=== PATIENT | male | born 1980 | race Caucasian/White ===

== ENCOUNTER 2016-12-14 16:52 | Emergency (ER) | payer SELFPAY ==
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
[2016-12-14] MEDS ORDERED: SODIUM CHLORIDE 0.9% 1,000 ML IV ONE (17:06)
[2016-12-14] MEDS ORDERED: LORazepam 2 MG/ML SYRINGE IVP STA (17:06)
[2016-12-14] MEDS ORDERED: LORazepam 2 MG/ML SYRINGE ONE (17:22)
[2016-12-14 17:38] LABS: BASOPHILS % (AUTO) 0.4 %; EOSINOPHILS % (AUTO) 0.3 %; HCT - HEMATOCRIT 42.5 % (42.0-52.0); HGB - HEMOGLOBIN 14.2 g/dL (14.0-18.0); LYMPHOCYTES # (AUTO) 2.1 10^3/uL (1.5-3.5); LYMPHOCYTES % (AUTO) 18.6 %; MEAN CORPUSCULAR HEMOGLOBIN 29.6 pg (27.0-31.0); MEAN CORPUSCULAR HGB CONC 33.5 g/dL (32.0-36.0); MEAN CORPUSCULAR VOLUME 88.4 fL (80.0-94.0); MEAN PLATELET VOLUME 8.6 fL (7.4-11.4); MONOCYTES # (AUTO) 0.7 10^3/uL (0.0-1.0); MONOCYTES % (AUTO) 6.5 %; NEUTROPHILS # (AUTO) 8.2 10^3/uL (1.5-6.6); NEUTROPHILS % (AUTO) 74.2 %; RED BLOOD COUNT 4.81 10^6/uL (4.70-6.10); RED CELL DISTRIBUTION WIDTH 13.6 % (12.0-15.0); UNCORRECTED WHITE BLOOD COUNT 11.1 x10^3/uL; WHITE BLOOD COUNT 11.1 x10^3/uL (4.8-10.8)
[2016-12-14 17:42] LABS: BILIRUBIN,URINE NEGATIVE (NEGATIVE)
[2016-12-14 17:43] LABS: UA CHARGE (STRIP ONLY) YES; UR CULTURE IF IND NOT INDICATED
[2016-12-14 17:54] LABS: ALBUMIN/GLOBULIN RATIO 1.9 (1.0-2.2); BILIRUBIN,TOTAL 1.5 mg/dL (0.2-1.0); CALCIUM 9.4 mg/dL (8.5-10.3); CREATININE 0.8 mg/dL (0.6-1.2); POTASSIUM 3.8 mmol/L (3.5-5.0); TOTAL PROTEIN 7.5 g/dL (6.7-8.2)
[2016-12-14 18:40] VITALS: BP 122/75
== END 2016-12-14 18:38 | disposition home or self-care (01) ==
LOC: EDUNIT# → ED 16:52
DX: F15.10 Other stimulant abuse, uncomplicated (principal)
CPT/HCPCS: 36415; 80053; 80306; 81003; 82550; 83690; 85025; 96374; 99283; 99284; J2060; 81001; 87086

== ENCOUNTER 2018-08-30 10:55 | Emergency (ER) | payer MEDICAID ==
[2018-08-30] MEDS ORDERED: IBUPROFEN 800 MG TABLET PO STA (11:51)
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
[2018-08-30] MEDS ORDERED: BACITRACIN ZINC OINT 28.4 GM TUBE TOP STA (15:51)
[2018-08-30 16:48] VITALS: BP 140/78
== END 2018-08-30 17:16 | disposition home or self-care (01) ==
LOC: ED 10:55
DX: T23.202A Burn of second degree of left hand, unspecified site, initial encounter (principal); T23.201A Burn of second degree of right hand, unspecified site, initial encounter; T20.26XA Burn of second degree of forehead and cheek, initial encounter; T31.0 Burns involving less than 10% of body surface; X02.8XXA Other exposure to controlled fire in building or structure, initial encounter; Y92.009 Unspecified place in unspecified non-institutional (private) residence as the place of occurrence of the external cause; F17.200 Nicotine dependence, unspecified, uncomplicated
CPT/HCPCS: 99283; 99284; A9270

== ENCOUNTER 2018-09-03 13:54 | Emergency (ER) | payer MEDICAID ==
[2018-09-03 14:02] VITALS: BP 198/115
[2018-09-03] MEDS ORDERED: oxyCODONE 5 MG TABLET PO STA (14:18)
[2018-09-03] MEDS ORDERED: BACITRACIN OINT TOP STA (14:18)
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
== END 2018-09-03 14:58 | disposition home or self-care (01) ==
LOC: ED 13:54
DX: T23.242D Burn of second degree of multiple left fingers (nail), including thumb, subsequent encounter (principal); T23.241D Burn of second degree of multiple right fingers (nail), including thumb, subsequent encounter; T20.26XD Burn of second degree of forehead and cheek, subsequent encounter; T31.0 Burns involving less than 10% of body surface; X03.0XXD Exposure to flames in controlled fire, not in building or structure, subsequent encounter; F17.200 Nicotine dependence, unspecified, uncomplicated
CPT/HCPCS: 16020; 99282; 99283; A9270

== ENCOUNTER 2019-03-06 14:53 | Emergency (ER) | payer MEDICAID ==
[2019-03-06] MEDS ORDERED: PROPARACAINE 0.5% OPHTH DROPS 15 ML EACHEYE STA (16:46)
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
[2019-03-06] MEDS ORDERED: ERYTHROMYCIN OPHTH OINT 1 GM TUBE RIGHTEYE STA (17:09)
[2019-03-06 17:12] VITALS: BP 128/80
== END 2019-03-06 17:18 | disposition home or self-care (01) ==
LOC: ED 14:53
DX: S05.01XA Injury of conjunctiva and corneal abrasion without foreign body, right eye, initial encounter (principal); W22.8XXA Striking against or struck by other objects, initial encounter; Y93.H9 Activity, other involving exterior property and land maintenance, building and construction; F17.200 Nicotine dependence, unspecified, uncomplicated
CPT/HCPCS: 99282; 99283; J3490

== ENCOUNTER 2020-06-25 11:57 | Emergency (ER) | payer MEDICAID ==
[2020-06-25] MEDS ORDERED: cefTRIAXone 1 GM VIAL IM STA (13:22)
[2020-06-25] MEDS ORDERED: LIDOCAINE 1% 2 ML VIAL MC ONE (13:22)
[2020-06-25] MEDS ORDERED: DEXAMETHASONE 10 MG/ML VIAL PO STA (13:22)
[2020-06-25] MEDS ORDERED: HYDROcod/ACETAM 5/325 MG TABLET PO STA (13:22)
--- NOTE | 2020-06-25 13:26 | ED Physician Documentation ---
PD HPI HEENT - Stated complaint Stated Complaint: RT SIDE FACE PX - Chief complaint Chief Complaint: Heent - History obtained from History obtained from: Patient - History of Present Illness Timing - onset: How many weeks ago (1) Timing - duration: Weeks (1) Timing - details: Gradual onset Pain level max: 8 Pain level now: 8 Location: Tooth (R lower jaw) Associated symptoms: No: Fever, Congestion, Rhinorrhea, Trismus, Unable to swallow, Cough Recently seen: Not recently seen - Additional information Additional information: 40-year-old male presents to the emergency department stating that his right lower tooth has been hurting for the past several weeks, increased swelling and pain today. Worse with palpation. Nothing makes it better. No fevers. No chills. No difficulty speaking or swallowing. Has not seen his dentist. Review of Systems Constitutional: denies: Fever, Chills Respiratory: denies: Cough Skin: denies: Rash Neurologic: denies: Headache PD PAST MEDICAL HISTORY - Past Medical History Past Medical History: Yes Cardiovascular: None Respiratory: None Neuro: None Endocrine/Autoimmune: None GI: None : None HEENT: None Psych: ADD/ADHD Musculoskeletal: None Derm: None - Past Surgical History Past Surgical History: No - Present Medications Home Medications: Ambulatory Orders Medication Instructions Recorded Confirmed HYDROcod/ACETAM 5/325 [[place] 5/325] 1 - 2 ea PO Q6H PRN #14 tab 06/25/20 Ibuprofen 600 mg PO Q6HR PRN 06/25/20 06/25/20 Ibuprofen [Motrin] 800 mg PO Q8H PRN #30 tab 06/25/20 Penicillin V Potassium 500 mg PO Q6HR #40 tab 06/25/20 - Allergies Allergies/Adverse Reactions: Allergies Allergy/AdvReac Type Severity Reaction Status Date / Time No Known Drug Allergies Allergy Verified 06/25/20 12:06 - Social History Does the pt smoke?: Yes Smoking Status: Current every day smoker Does the pt drink ETOH?: No Does the pt have substance abuse?: Yes Substance Use and Type: Marijuana, Meth - Immunizations Immunizations are current?: Yes Immunizations: TDAP >10years/unknown - POLST Patient has POLST: No PD ED PE NORMAL - Vitals Vital signs reviewed: Yes - General General: Alert and oriented X 3, No acute distress - HEENT HEENT: Moist mucous membranes, Other (Poor dentition throughout. No drainable abscesses. Mild swelling to the right lower mandible. Normal phonation. No trismus. No facial cellulitis. No Ludwigs angina.) - Neck Neck: Supple, no meningeal sign, No adenopathy - Cardiac Cardiac: RRR - Respiratory Respiratory: No respiratory distress, Clear bilaterally - Derm Derm: Warm and dry, No rash - Neuro Neuro: Alert and oriented X 3 - Psych Psych: Normal mood, Normal affect Results - Vitals Vitals: Vital Signs - 24 hr 06/25/20 06/25/20 12:06 14:18 Temperature 36.9 C Heart Rate 103 H 98 Respiratory 18 14 Rate Blood Pressure 123/83 H 132/84 H O2 Saturation 100 100 Oxygen O2 Source Room air PD MEDICAL DECISION MAKING - ED course Complexity details: considered differential, d/w patient ED course: Patient with dental caries. Appears to have swelling but no drainable abscess yet. Given Rocephin. Will place on antibiotics and have him follow-up closely with dentistry. Patient is well-appearing, nontoxic. Afebrile. No airway impingement. Speaking and swallowing without difficulty. Normal phonation. No trismus. Patient counseled regarding signs and symptoms for which I believe and urgent re-evaluation would be necessary. Patient with good understanding of and agreement to plan and is comfortable going home at this time This document was made in part using voice recognition software. While efforts are made to proofread this document, sound alike and grammatical errors may occur. Departure - Departure Disposition: 01 Home, Self Care Clinical Impression: Dental caries Condition: Good Instructions: ED Tooth Pain Follow-Up: your,dentist within 3 days [Other] Prem Sesay DDS [Physician No Access] - IVETH HERNADEZ [Physician No Access] - DEBAR HERNADEZ DDS [Physician No Access] - Prescriptions: Penicillin V Potassium 500 mg PO Q6HR #40 tab Ibuprofen [Motrin] 800 mg PO Q8H PRN #30 tab PRN Reason: PAIN &/OR FEVER HYDROcod/ACETAM 5/325 [[place] 5/325] 1 - 2 ea PO Q6H PRN #14 tab PRN Reason: Pain Comments: Take all antibiotics until gone. You need to follow-up with a dentist this week for further evaluation of your tooth. [place]. Return if you worsen Discharge Date/Time: 06/25/20 14:19
[2020-06-25 14:19] VITALS: BP 132/84
== END 2020-06-25 14:19 | disposition home or self-care (01) ==
LOC: ED 11:57
DX: K02.9 Dental caries, unspecified (principal); F17.200 Nicotine dependence, unspecified, uncomplicated
CPT/HCPCS: 96372; 99283; 99284; A9270

== ENCOUNTER 2021-04-03 12:08 | Emergency (ER) | payer MEDICAID ==
[2021-04-03 12:15] VITALS: BP 128/83
--- NOTE | 2021-04-03 12:25 | ED Physician Documentation ---
History of Present Illness - Stated complaint Stated Complaint: HEAD INJ - Chief complaint Chief Complaint: Laceration - Additonal information Additional information: 41-year-old male presents emergency department for evaluation of abrasion to the top of his forehead. He reports that he sustained it yesterday when getting into the cab of his truck however the abrasion itself is nearly healed and appears to be a few days old. This gentleman presents is very disheveled. He states this provider that he requested evaluation for the abrasion as his significant other or partner is also being treated in the ER and he could not come back without being a patient. He denies any headaches nausea or vomiting. No loss of consciousness. Is not anticoagulated otherwise despite the disheveled appearance seemingly well Review of Systems Constitutional: denies: Fever, Chills Eyes: reports: Reviewed and negative Ears: reports: Reviewed and negative Nose: reports: Reviewed and negative Cardiac: reports: Reviewed and negative Respiratory: reports: Reviewed and negative GI: reports: Reviewed and negative : reports: Reviewed and negative Skin: reports: Abrasion (s) Musculoskeletal: reports: Reviewed and negative Neurologic: reports: Reviewed and negative Psychiatric: reports: Reviewed and negative Endocrine: reports: Reviewed and negative PD PAST MEDICAL HISTORY - Past Medical History Cardiovascular: None Respiratory: None Neuro: None Endocrine/Autoimmune: None GI: None : None HEENT: None Psych: ADD/ADHD Musculoskeletal: None Derm: None - Past Surgical History Past Surgical History: No - Present Medications Home Medications: Ambulatory Orders Medication Instructions Recorded Confirmed HYDROcod/ACETAM 5/325 [[place] 5/325] 1 - 2 ea PO Q6H PRN #14 tab 06/25/20 Ibuprofen 600 mg PO Q6HR PRN 06/25/20 06/25/20 Ibuprofen [Motrin] 800 mg PO Q8H PRN #30 tab 06/25/20 Penicillin V Potassium 500 mg PO Q6HR #40 tab 06/25/20 - Allergies Allergies/Adverse Reactions: Allergies Allergy/AdvReac Type Severity Reaction Status Date / Time No Known Drug Allergies Allergy Verified 04/03/21 12:11 - Social History Does the pt smoke?: Yes Smoking Status: Current every day smoker Does the pt drink ETOH?: No Does the pt have substance abuse?: Yes - Immunizations Immunizations are current?: Yes Immunizations: TDAP >10years/unknown - POLST Patient has POLST: No PD ED PE EXPANDED - General General: No acute distress, Disheveled, poorly kept - HEENT HEENT: PERRL, EOMI, Ears normal, Pharynx normal. No: Head injury (Superficial 2 cm abrasion top of the forehead near the hairline. Appears nearly healed and significantly older than 24 hours. No surrounding erythema or drainage.) - Cardiac Cardiac: Regular Rate, Radial strong equal, Pedal strong equal, Cap refill < 2 sec - Respiratory Respiratory: Clear to ausultation harris. No: Distress, Labored - Abdomen Abdomen: Normal Bowel sounds, Tender to palpation - Derm Derm: Abrasion (s) (superficial healing abrasion top of forehead; nerly healed) - Extremities Extremities: Normal. No: Deformity, Tenderness - Neuro Neuro: Alert and Oriented X 3, CNII-XII intact - GCS Eye Opening: Spontaneous Motor: Obeys Commands Verbal: Oriented Total: 15 Results - Vitals Vitals: Vital Signs - 24 hr 04/03/21 12:11 Temperature 36.5 C Heart Rate 90 Respiratory 16 Rate Blood Pressure 128/83 H O2 Saturation 99 Oxygen O2 Source Room air PD MEDICAL DECISION MAKING - ED course Complexity details: considered differential, d/w patient ED course: well appearing homeless male checked into the ED for an abrasion on his forehead in order to gain entrance to the ED where his partner is being treated. His abrasion appears much older than 24 hours and is superficial in nature and healing well. Recommend bacitracin and routine wound care given low risk injury of how the abrasion was sustained CT imaging was deferred. Emergent return precautions verbally discussed. Departure - Departure Disposition: 01 Home, Self Care Clinical Impression: Abrasion Instructions: ED Abrasion Comments: The abrasion on the top of your forehead is healing well. I do recommend that you place in the thin layer of antibiotic ointment to the top of it once or twice a day.
== END 2021-04-03 12:34 | disposition home or self-care (01) ==
LOC: ED 12:08
DX: S00.81XA Abrasion of other part of head, initial encounter (principal); X58.XXXA Exposure to other specified factors, initial encounter; Y93.89 Activity, other specified; Y92.812 Truck as the place of occurrence of the external cause; F17.200 Nicotine dependence, unspecified, uncomplicated; Z59.00 Homelessness unspecified
CPT/HCPCS: 99281; 99282

== ENCOUNTER 2021-06-15 16:57 | Emergency (ER) | payer MEDICAID ==
[2021-06-15] MEDS ORDERED: LIDOCAINE 1%-EPI 1:100000 20 ML MDV SUBQ STA (17:14)
[2021-06-15] MEDS ORDERED: cephALEXin 250 MG CAPSULE PO STA (17:33)
--- NOTE | 2021-06-15 17:34 | ED Physician Documentation ---
History of Present Illness - Stated complaint Stated Complaint: RT WRIST LAC/INJ - Chief complaint Chief Complaint: Laceration - History obtained from History obtained from: Patient - History of Present Illness Timing: Today Pain level max: 3 Pain level now: 3 - Additonal information Additional information: 41-year-old male presents to the emergency department after a right wrist laceration. He states that he accidentally punched a mirror in the garbage can which broke and lacerated his wrist. Tetanus shot is up-to-date. Patient is right-handed. No numbness or tingling. Full use of the arm and hand. Review of Systems Constitutional: denies: Fever, Chills Respiratory: denies: Cough GI: denies: Nausea, Vomiting, Diarrhea Skin: denies: Rash Musculoskeletal: denies: Neck pain, Back pain Neurologic: denies: Headache PD PAST MEDICAL HISTORY - Past Medical History Cardiovascular: None Respiratory: None Neuro: None Endocrine/Autoimmune: None GI: None : None HEENT: None Psych: ADD/ADHD Musculoskeletal: None Derm: None - Past Surgical History Past Surgical History: No - Present Medications Home Medications: Ambulatory Orders Medication Instructions Recorded Confirmed cephALEXin [Keflex] 500 mg PO Q6H #28 cap 06/15/21 - Allergies Allergies/Adverse Reactions: Allergies Allergy/AdvReac Type Severity Reaction Status Date / Time No Known Drug Allergies Allergy Verified 06/15/21 17:04 - Social History Does the pt smoke?: Yes Smoking Status: Current every day smoker Does the pt drink ETOH?: No Does the pt have substance abuse?: Yes - Immunizations Immunizations are current?: Yes Immunizations: TDAP >10years/unknown - POLST Patient has POLST: No PD ED PE NORMAL - Vitals Vital signs reviewed: Yes - General General: Alert and oriented X 3, No acute distress - HEENT HEENT: Moist mucous membranes - Neck Neck: Supple, no meningeal sign - Cardiac Cardiac: RRR - Respiratory Respiratory: No respiratory distress, Clear bilaterally - Derm Derm: Warm and dry - Extremities Extremities: Other (There is an irregular laceration to the volar aspect of the right wrist, about 5 cm proximal to the crease. The laceration is about 4 cm in length. There is no tendon injury. Neurovascularly intact. No vascular injury. There are small flaps of the subcutaneous avulsion as well.) - Neuro Neuro: Alert and oriented X 3 - Psych Psych: Normal mood, Normal affect Results - Vitals Vitals: Vital Signs - 24 hr 06/15/21 06/15/21 17:01 17:40 Temperature 36.6 C Heart Rate 84 90 Respiratory 18 16 Rate Blood Pressure 146/87 H 137/88 H O2 Saturation 99 98 Oxygen O2 Source Room air Procedures - Laceration (location) Right wrist Length in cm: 4 Wound type: Curved, Irregular, Flap, Into muscle, Clean Neurovascular status: Sensory intact, Motor intact, Vascular intact Tendon involvement: Tendon intact Anesthesia: Lidocaine 1% with epi Wound preparation: Irrigated copiously NS, Wound explored, To the base Skin layer closure: Nylon, Dermabond, Interrupted, Size #-0 - enter number (4) Other: Patient tolerated well, No complications, Neurovascular intact, Dressing applied, Tetanus UTD PD MEDICAL DECISION MAKING - ED course Complexity details: considered differential, d/w patient ED course: 41-year-old male with a laceration to the volar aspect of the right wrist. About 5 cm proximal to the fold of the wrist. The laceration was repaired with sutures except for the areas with small skin avulsions, these were glued down as they were too thin to hold a suture. The patient's tetanus shot is up-to-date. He is right-handed. A dressing was applied and a Velcro splint was applied to help immobilize the area while it heals. Patient will monitor the area for signs of infection several times a day. Recommended that he take the splint off frequently to wash the area and ensure it stays dry. We will place him on Keflex as well. Warnings of infection and instructions on wound care given at bedside. Also counseled on how to minimize scarring. No foreign body was found on exploration of the wound. No indication for imaging Patient counseled regarding signs and symptoms for which I believe and urgent re-evaluation would be necessary. Patient with good understanding of and agreement to plan and is comfortable going home at this time This document was made in part using voice recognition software. While efforts are made to proofread this document, sound alike and grammatical errors may occur. Departure - Departure Disposition: 01 Home, Self Care Clinical Impression: Laceration of wrist Qualifiers: Encounter type: initial encounter Laterality: right Qualified Code(s): S61.511A - Laceration without foreign body of right wrist, initial encounter Condition: Good Instructions: ED Laceration All Follow-Up: your,doctor in 10-14 days for suture removal [Other] Prescriptions: cephALEXin [Keflex] 500 mg PO Q6H #28 cap Comments: Your prescriptions were sent to [facility] in [place]. Take all antibiotics until gone. Please follow-up with your doctor in 10 to 14 days for suture removal. Return here if you are unable to see your doctor or if you notice redness, swelling or drainage from the wound. As we discussed the 2 small flaps of skin may turn black, fall off and as they are thin and do not have a good blood supply. Discharge Date/Time: 06/15/21 17:56
[2021-06-15 17:44] VITALS: BP 137/88
== END 2021-06-15 17:56 | disposition home or self-care (01) ==
LOC: ED 16:57
DX: S61.511A Laceration without foreign body of right wrist, initial encounter (principal); W25.XXXA Contact with sharp glass, initial encounter; F17.200 Nicotine dependence, unspecified, uncomplicated
CPT/HCPCS: 12002; 99283; A9270

== ENCOUNTER 2022-04-03 20:03 | Emergency (ER) | payer MEDICAID ==
[2022-04-03 20:16] VITALS: BP 127/83
[2022-04-03] MEDS ORDERED: cephALEXin 250 MG CAPSULE PO STA (20:32)
[2022-04-03] MEDS ORDERED: ACETAMINOPHEN 500 MG TABLET PO STA (20:32)
--- NOTE | 2022-04-03 20:41 | ED Physician Documentation ---
PD HPI UPPER EXT INJURY - Stated complaint Stated Complaint: LT HAND LAC - Chief complaint Chief Complaint: Laceration - History obtained from History obtained from: Patient - Additonal information Additional information: Patient is a 42-year-old male with laceration To left hand between fourth And fifth digits That occurred 48 hours ago (Wednesday night). Patient states he was out in the [place] cho[place] wood and had left his knife on the ground. When he went down to [place]pler pickup a piece of wood He accidentally cut his hand. He states that he was on the [place] and did not want to seek medical help but he has noticed Some mild discomfort at the site. His tetanus is up-to-date within the last couple of years. He does not take any medications regularly and denies the use of blood thinners. Review of Systems Constitutional: denies: Fever Nose: denies: Congestion Cardiac: denies: Chest pain / pressure Respiratory: denies: Dyspnea GI: denies: Abdominal Pain : denies: Dysuria Skin: reports: Laceration (s) Musculoskeletal: denies: Extremity swelling Neurologic: denies: Headache PD PAST MEDICAL HISTORY - Past Medical History Cardiovascular: None Respiratory: None Neuro: None Endocrine/Autoimmune: None GI: None : None HEENT: None Psych: ADD/ADHD Musculoskeletal: None Derm: None - Past Surgical History Past Surgical History: No - Present Medications Home Medications: Ambulatory Orders Medication Instructions Recorded Confirmed cephALEXin [Keflex] 500 mg PO Q6H #28 cap 04/03/22 - Allergies Allergies/Adverse Reactions: Allergies Allergy/AdvReac Type Severity Reaction Status Date / Time No Known Drug Allergies Allergy Verified 04/03/22 20:13 - Social History Does the pt smoke?: Yes Smoking Status: Current every day smoker Does the pt drink ETOH?: No Does the pt have substance abuse?: Yes - Immunizations Immunizations are current?: Yes Immunizations: TDAP >10years/unknown - POLST Patient has POLST: No PD ED PE NORMAL - General General: Alert and oriented X 3, No acute distress, Well developed/nourished - HEENT HEENT: Atraumatic, Moist mucous membranes - Neck Neck: Supple, no meningeal sign - Cardiac Cardiac: RRR - Respiratory Respiratory: No respiratory distress - Derm Derm: Warm and dry, No rash - Extremities Extremities: Other (1 cm laceration to interdigit space between left fourth and fifth digits,No redness, no fluctuance, normal range of motion at all joints - Both hands are covered in dirt) PD ED PE EXPANDED - Extremities MARIXA UE/Hands Visual: 1 - laceration Results - Vitals Vitals: Vital Signs - 24 hr 04/03/22 20:11 Temperature 37 C Heart Rate 108 H Respiratory 16 Rate Blood Pressure 127/83 H O2 Saturation 100 Oxygen O2 Source Room air PD MEDICAL DECISION MAKING - ED course ED course: Patient with 1 cm laceration to interdigit space of the left fourth and fifth digits. His hands are covered in dirt. Given That his wound is been there for 48 hours and his hands are very dirty I do not feel that primary closure is indicated. I discussed that the wound will heal by secondary intention.I do not see any signs of current infection but given how dirty his hands were I am concerned that this wound Is high risk for infection and have started him on an antibiotic.Patient is counseled on concerning symptoms to return for and advised to keep the wound clean and dry. Departure - Departure Disposition: 01 Home, Self Care Clinical Impression: Laceration of left hand Qualifiers: Encounter type: initial encounter Foreign body presence: without foreign body Qualified Code(s): S61.412A - Laceration without foreign body of left hand, initial encounter Instructions: ED Laceration All Prescriptions: cephALEXin [Keflex] 500 mg PO Q6H #28 cap Comments: Please continue to keep your wound clean and dry. We are not able to suture or close it up because it has been open for 48 hours and there is a higher risk of infection.Because there was a lot of of dirt near the wound I have started you on an antibiotic to help prevent an infection called Keflex. I sent this prescription to [facility].If you notice any redness, swelling, abnormal drainage, have increased pain or have any concerns please return to the emergency department. Discharge Date/Time: 04/03/22 21:12
== END 2022-04-03 21:12 | disposition home or self-care (01) ==
LOC: ED 20:03
DX: S61.412A Laceration without foreign body of left hand, initial encounter (principal); W26.0XXA Contact with knife, initial encounter; Y93.89 Activity, other specified; F17.200 Nicotine dependence, unspecified, uncomplicated
CPT/HCPCS: 99282; 99284; A9270

== ENCOUNTER 2022-05-04 09:23 | Outpatient (CLI) | payer MEDICAID | END 2022-05-04 09:24 | disposition critical access hospital (66) | LOC: EMS 09:23 | DX: R51.9 Headache, unspecified (principal); M79.10 Myalgia, unspecified site; R00.0 Tachycardia, unspecified | CPT/HCPCS: A0425; A0429; A0999 ==

== ENCOUNTER 2022-05-04 09:37 | Emergency (ER) | payer MEDICAID ==
[2022-05-04 09:47] VITALS: BP 124/76
--- NOTE | 2022-05-04 09:50 | ED Physician Documentation ---
PD HPI MHE - Stated complaint Stated Complaint: ROD - Chief complaint Chief Complaint: General - History obtained from History obtained from: Patient - History of Present Illness Primary symptom: Anxiety, Other (feeling nausea, headache and weakness. Some diarrhea. Recent meth and concerned about meth withdrawal.) Timing - onset: How many days ago (1-2) Contributing factors: Substance abuse - drugs (meth) Similar symptoms before: Diagnosis (has had some of these type symptoms with meth use/withdrawal, though nausea and headache are not usual.) Recently seen: Not recently seen Review of Systems Constitutional: reports: Chills, Myalgias. denies: Fever Nose: reports: Congestion. denies: Rhinorrhea / runny nose Throat: denies: Sore throat Cardiac: denies: Chest pain / pressure Respiratory: reports: Cough. denies: Dyspnea GI: reports: Nausea. denies: Abdominal Pain, Vomiting, Diarrhea (loose stools though) Musculoskeletal: denies: Neck pain, Back pain Neurologic: reports: Headache. denies: Altered mental status PD PAST MEDICAL HISTORY - Past Medical History Cardiovascular: None Respiratory: None Neuro: None Endocrine/Autoimmune: None GI: None : None HEENT: None Psych: ADD/ADHD Musculoskeletal: None Derm: None - Past Surgical History Past Surgical History: No - Present Medications Home Medications: Ambulatory Orders Medication Instructions Recorded Confirmed cephALEXin [Keflex] 500 mg PO Q6H #28 cap 04/03/22 LORazepam [Ativan] 1 mg PO BID PRN #10 tablet 05/04/22 Ondansetron Odt [Zofran] 4 mg TL Q6H PRN #10 tablet 05/04/22 - Allergies Allergies/Adverse Reactions: Allergies Allergy/AdvReac Type Severity Reaction Status Date / Time No Known Drug Allergies Allergy Verified 05/04/22 09:46 - Living Situation Living Situation: reports: Alone Living Arrangement: reports: Homeless - Social History Does the pt smoke?: Yes Smoking Status: Current every day smoker Does the pt drink ETOH?: No Does the pt have substance abuse?: Yes - Immunizations Immunizations are current?: Yes Immunizations: TDAP >10years/unknown - POLST Patient has POLST: No PD ED PE NORMAL - Vitals Vital signs reviewed: Yes - General General: Alert and oriented X 3, Well developed/nourished, Other (anxious and somewhat shaky, fidgety. ) - HEENT HEENT: Ears normal, Pharynx benign. No: Moist mucous membranes - Neck Neck: Supple, no meningeal sign, No adenopathy - Cardiac Cardiac: RRR, No murmur - Respiratory Respiratory: Clear bilaterally - Abdomen Abdomen: Soft, Non distended, Other (some tender epigastric area without guarding. ) - Back Back: No CVA TTP - Derm Derm: Normal color, Warm and dry - Extremities Extremities: Normal ROM s pain, Other (uncleaned hands/fingers. unkempt hair and face. no obvious nits.) - Neuro Neuro: Alert and oriented X 3, No motor deficit, Normal speech Results - Vitals Vitals: Vital Signs - 24 hr 05/04/22 09:44 Temperature 37.3 C Heart Rate 98 Respiratory 18 Rate Blood Pressure 124/76 O2 Saturation 100 Oxygen O2 Source Room air - Labs Labs: Laboratory Tests 05/04/22 05/04/22 05/04/22 10:18 10:18 10:42 WBC 5.5 RBC 4.33 L Hgb 12.1 L Hct 38.5 L MCV 88.9 MCH 27.9 MCHC 31.4 L RDW 13.3 Plt Count 206 MPV 9.7 Neut # (Auto) 4.6 Lymph # (Auto) 0.2 L Harvey # (Auto) 0.6 Eos # (Auto) 0.1 Baso # (Auto) 0.0 Absolute Nucleated RBC 0.00 Nucleated RBC % 0.0 Sodium 135 Potassium 3.6 Chloride 102 Carbon Dioxide 24 Anion Gap 9.0 BUN 17 Creatinine 0.8 Estimated GFR (MDRD) 107 Glucose 123 H Calcium 8.5 Magnesium 2.0 Total Bilirubin 0.9 AST 26 ALT 38 Alkaline Phosphatase 73 Total Creatine Kinase 152 Total Protein 7.0 Albumin 4.1 Globulin 2.9 Albumin/Globulin Ratio 1.4 Lipase 34 Nasal Adenovirus (PCR) NOT DETECTED Nasal B. parapertussis DNA (PCR) NOT DETECTED Nasal Coronavir 229E PCR NOT DETECTED Nasal Coronavir HKU1 PCR NOT DETECTED Nasal Coronavir NL63 PCR NOT DETECTED Nasal Coronavir OC43 PCR NOT DETECTED Nasal Enterovir/Rhinovir PCR NOT DETECTED Nasal Influenza B PCR NOT DETECTED Nasal Influenza A PCR NOT DETECTED Nasal Parainfluen 1 PCR NOT DETECTED Nasal Parainfluen 2 PCR NOT DETECTED Nasal Parainfluen 3 PCR NOT DETECTED Nasal Parainfluen 4 PCR NOT DETECTED Nasal RSV (PCR) NOT DETECTED Nasal B.pertussis DNA PCR NOT DETECTED Nasal C.pneumoniae (PCR) NOT DETECTED Ted Human Metapneumo PCR NOT DETECTED Nasal M.pneumoniae (PCR) NOT DETECTED Nasal SARS-CoV-2 (PCR) DETECTED A Urine Opiates Screen Ur Oxycodone Screen Urine Methadone Screen Ur Propoxyphene Screen Ur Barbiturates Screen Ur Tricyclics Screen Ur Phencyclidine Scrn Ur Amphetamine Screen U Methamphetamines Scrn U Benzodiazepines Scrn Urine Cocaine Screen U Cannabinoids Screen 05/04/22 10:42 WBC RBC Hgb Hct MCV MCH MCHC RDW Plt Count MPV Neut # (Auto) Lymph # (Auto) Harvey # (Auto) Eos # (Auto) Baso # (Auto) Absolute Nucleated RBC Nucleated RBC % Sodium Potassium Chloride Carbon Dioxide Anion Gap BUN Creatinine Estimated GFR (MDRD) Glucose Calcium Magnesium Total Bilirubin AST ALT Alkaline Phosphatase Total Creatine Kinase Total Protein Albumin Globulin Albumin/Globulin Ratio Lipase Nasal Adenovirus (PCR) Nasal B. parapertussis DNA (PCR) Nasal Coronavir 229E PCR Nasal Coronavir HKU1 PCR Nasal Coronavir NL63 PCR Nasal Coronavir OC43 PCR Nasal Enterovir/Rhinovir PCR Nasal Influenza B PCR Nasal Influenza A PCR Nasal Parainfluen 1 PCR Nasal Parainfluen 2 PCR Nasal Parainfluen 3 PCR Nasal Parainfluen 4 PCR Nasal RSV (PCR) Nasal B.pertussis DNA PCR Nasal C.pneumoniae (PCR) Ted Human Metapneumo PCR Nasal M.pneumoniae (PCR) Nasal SARS-CoV-2 (PCR) Urine Opiates Screen NEGATIVE Ur Oxycodone Screen NEGATIVE Urine Methadone Screen NEGATIVE Ur Propoxyphene Screen NEGATIVE Ur Barbiturates Screen NEGATIVE Ur Tricyclics Screen NEGATIVE Ur Phencyclidine Scrn NEGATIVE Ur Amphetamine Screen POSITIVE H U Methamphetamines Scrn POSITIVE H U Benzodiazepines Scrn NEGATIVE Urine Cocaine Screen NEGATIVE U Cannabinoids Screen NEGATIVE PD Medical Decision Making - ED course Complexity details: re-evaluated patient (he is rested and sleeping for several hours. He does not want to go to detox. Unfortunately not sick enough to need to stay in hospital, so had to discharge him. ), considered differential (consider meth use/withdrawal symptoms. but also sounds like viral syndrome. can give iv fluids, antiemetics, and dose benzo for anxiety symptoms. ), d/w patient Social Determinants of Health: homeless and has covid, so cannot go to assisted. No real other soultions currently after brief discussion with SW. Patient does not want detox, so eliminates that option. Departure - Departure Disposition: 01 Home, Self Care Clinical Impression: COVID, Nausea vomiting and diarrhea, Methamphetamine use Condition: Stable Record reviewed to determine appropriate education?: Yes Instructions: ED Viral Syndrome Prescriptions: LORazepam [Ativan] 1 mg PO BID PRN #10 tablet PRN Reason: Anxiety Ondansetron Odt [Zofran] 4 mg TL Q6H PRN #10 tablet PRN Reason: Nausea / Vomiting Comments: Your testing was positive for COVID. I think this accounts for much of your symptoms of some cough as well as general aches and nausea with the diarrhea. Certainly there will be some element of meth side effects and withdrawal. Use the pack Slo-Bid twice daily as directed by the package instructions. This tries to decrease his symptoms from the COVID. Ondansetron if needed for nausea. I wrote a prescription for lorazepam to use twice daily as needed for meth withdrawal type symptoms. You had stated you did not want any detox or such at this time. Return if needed. Certainly avoid recreational drug use especially math. I sent your prescriptions to your preferred pharmacy. Discharge Date/Time: 05/04/22 15:02
[2022-05-04] MEDS ORDERED: LORazepam 2 MG/ML VIAL IVP STA (10:11)
[2022-05-04] MEDS ORDERED: KETOROLAC 15 MG/ML VIAL IVP STA (10:11)
[2022-05-04] MEDS ORDERED: SODIUM CHLORIDE 0.9% 1,000 ML IV STA (10:11)
[2022-05-04 10:24] LABS: BASOPHILS % (AUTO) 0.5 %; EOSINOPHILS # (AUTO) 0.1 10^3/uL (0.0-0.7); EOSINOPHILS % (AUTO) 1.1 %; HCT - HEMATOCRIT 38.5 % (42.0-52.0); HGB - HEMOGLOBIN 12.1 g/dL (14.0-18.0); LYMPHOCYTES # (AUTO) 0.2 10^3/uL (1.5-3.5); LYMPHOCYTES % (AUTO) 3.6 %; MEAN CORPUSCULAR HEMOGLOBIN 27.9 pg (27.0-31.0); MEAN CORPUSCULAR HGB CONC 31.4 g/dL (32.0-36.0); MEAN CORPUSCULAR VOLUME 88.9 fL (80.0-94.0); MEAN PLATELET VOLUME 9.7 fL (7.4-11.4); MONOCYTES # (AUTO) 0.6 10^3/uL (0.0-1.0); MONOCYTES % (AUTO) 11.6 %; NEUTROPHILS # (AUTO) 4.6 10^3/uL (1.5-6.6); NEUTROPHILS % (AUTO) 82.8 %; PLT - PLATELET COUNT 206 10^3/uL (130-450); RED BLOOD COUNT 4.33 10^6/uL (4.70-6.10); RED CELL DISTRIBUTION WIDTH 13.3 % (12.0-15.0); WHITE BLOOD COUNT 5.5 x10^3/uL (4.8-10.8)
[2022-05-04 10:40] LABS: ALBUMIN 4.1 g/dL (3.2-5.5); ALBUMIN/GLOBULIN RATIO 1.4 (1.0-2.2); BILIRUBIN,TOTAL 0.9 mg/dL (0.2-1.0); CALCIUM 8.5 mg/dL (8.5-10.3); CREATININE 0.8 mg/dL (0.6-1.2); POTASSIUM 3.6 mmol/L (3.5-5.0)
[2022-05-04 10:47] LABS: MUDS CUTOFF CONCENTRATIONS CUTOFF CONC BELOW:
[2022-05-04 11:33] LABS: COCAINE SCREEN URINE NEGATIVE (NEGATIVE); THC CANNABINOID SCREEN, URINE NEGATIVE (NEGATIVE)
[2022-05-04 11:34] LABS: AMPHETAMINE SCREEN,URINE POSITIVE (NEGATIVE); BARBITURATE SCREEN,UR NEGATIVE (NEGATIVE); BENZODIAZEPINES SCREEN, URINE NEGATIVE (NEGATIVE); METHADONE SCREEN, URINE NEGATIVE (NEGATIVE); METHAMPHETAMINES SCREEN, URINE POSITIVE (NEGATIVE); OPIATE SCREEN, URINE NEGATIVE (NEGATIVE); OXYCODONE SCREEN, URINE NEGATIVE (NEGATIVE); PROPOXYPHENE SCREEN, URINE NEGATIVE (NEGATIVE); TRICYCLIC ANTIDEPRESSANT,URINE NEGATIVE (NEGATIVE)
[2022-05-04 13:06] LABS: B. PARAPERTUSSIS- RESP PCR PAN NOT DETECTED; B. PERTUSSIS- RESP PCR PANEL NOT DETECTED; C. PNEUMONIAE- RESP PCR PANEL NOT DETECTED; CORONAVIRUS 229E-RESP PCR NOT DETECTED; CORONAVIRUS HKU1-RESP PCR NOT DETECTED; CORONAVIRUS NL63-RESP PCR NOT DETECTED; CORONAVIRUS OC43-RESP PCR NOT DETECTED; HUMAN METAPNEUMOVIRUS NOT DETECTED; INFLUENZA A- RESP PCR PANEL NOT DETECTED; INFLUENZA B - RESP PCR PANEL NOT DETECTED; M. PNEUMONIAE- RESP PCR PANEL NOT DETECTED; PARAINFLUENZA VIRUS 1 NOT DETECTED; PARAINFLUENZA VIRUS 2 NOT DETECTED; PARAINFLUENZA VIRUS 3 NOT DETECTED; PARAINFLUENZA VIRUS 4 NOT DETECTED; RHINOVIRUS/ENTEROVIRUS NOT DETECTED; RSV- RESP PCR PANEL NOT DETECTED
[2022-05-04 13:09] LABS: SARS-CoV-2 -RESP PCR PANEL DETECTED
[2022-05-04] MEDS ORDERED: NIRMATRELVIR/RITONAVIR PREPACK PO STA (13:32)
== END 2022-05-04 15:02 | disposition home or self-care (01) ==
LOC: EDUNIT# → ED 09:37
DX: U07.1 COVID-19 (principal); R19.7 Diarrhea, unspecified; R11.2 Nausea with vomiting, unspecified; F17.200 Nicotine dependence, unspecified, uncomplicated; Z59.00 Homelessness unspecified
CPT/HCPCS: 36415; 80053; 80306; 82550; 83690; 83735; 85025; 87633; 96361; 96374; 99282; 99284; J2060; J3490

== ENCOUNTER 2023-09-15 09:59 | Emergency (ER) | payer MEDICAID ==
--- NOTE | 2023-09-15 11:03 | ED Physician Documentation ---
PD HPI HEENT - Stated complaint Stated Complaint: BODY HOT - Chief complaint Chief Complaint: Heent - History obtained from History obtained from: Patient - Additional information Additional information: Patient is a 43-year-old male without any significant past medical history presenting for evaluation of dental pain over the last year but worse in the past week. Reports left upper molars have been causing him discomfort and he recently was able to pop an area of swelling and had some drainage. He reports today having some bodyaches and feels subjective fever. No cough or congestion, vomiting, abdominal pain, diarrhea or dysuria. Has not taken any medications for fever or pain. Review of Systems Constitutional: reports: Fever (Subjective) Throat: reports: Dental pain / toothache Cardiac: denies: Chest pain / pressure Respiratory: denies: Dyspnea, Cough GI: denies: Abdominal Pain PD PAST MEDICAL HISTORY - Past Medical History Past Medical History: Yes Cardiovascular: None Respiratory: None Neuro: None Endocrine/Autoimmune: None GI: None : None HEENT: None Psych: ADD/ADHD Musculoskeletal: None Derm: None - Past Surgical History Past Surgical History: No - Present Medications Home Medications: Ambulatory Orders Medication Instructions Recorded Confirmed Amoxicillin 500 mg PO TID 7 Days #21 cap 09/15/23 - Allergies Allergies/Adverse Reactions: Allergies Allergy/AdvReac Type Severity Reaction Status Date / Time No Known Drug Allergies Allergy Verified 09/15/23 10:06 - Social History Does the pt smoke?: Yes Smoking Status: Current every day smoker Does the pt drink ETOH?: Yes Does the pt have substance abuse?: Yes Substance Use and Type: Marijuana - Immunizations Immunizations are current?: Yes Immunizations: TDAP >10years/unknown - POLST Patient has POLST: No PD ED PE NORMAL - General General: Alert and oriented X 3, No acute distress, Well developed/nourished - HEENT HEENT: Atraumatic, Moist mucous membranes, Pharynx benign, Other (Poor dentition with multiple areas of erosion, no abscess or oral swelling) - Neck Neck: Supple, no meningeal sign - Cardiac Cardiac: RRR - Respiratory Respiratory: No respiratory distress, Clear bilaterally - Abdomen Abdomen: Soft, Non tender - Derm Derm: Warm and dry - Neuro Neuro: Normal speech Results - Vitals Vitals: Vital Signs - 24 hr 09/15/23 09/15/23 10:06 11:18 Temperature 36.5 C 36.9 C Heart Rate 116 H 93 Respiratory 18 18 Rate Blood Pressure 103/80 126/83 H O2 Saturation 99 100 Oxygen O2 Source Room air - Labs Labs: Laboratory Tests 09/15/23 11:03 Nasal Adenovirus (PCR) NOT DETECTED Nasal B. parapertussis DNA (PCR) NOT DETECTED Nasal Coronavir 229E PCR NOT DETECTED Nasal Coronavir HKU1 PCR NOT DETECTED Nasal Coronavir NL63 PCR NOT DETECTED Nasal Coronavir OC43 PCR NOT DETECTED Nasal Enterovir/Rhinovir PCR NOT DETECTED Nasal Influenza B PCR NOT DETECTED Nasal Influenza A PCR NOT DETECTED Nasal Parainfluen 1 PCR NOT DETECTED Nasal Parainfluen 2 PCR NOT DETECTED Nasal Parainfluen 3 PCR DETECTED A Nasal Parainfluen 4 PCR NOT DETECTED Nasal RSV (PCR) NOT DETECTED Nasal B.pertussis DNA PCR NOT DETECTED Nasal C.pneumoniae (PCR) NOT DETECTED Ted Human Metapneumo PCR NOT DETECTED Nasal M.pneumoniae (PCR) NOT DETECTED Nasal SARS-CoV-2 (PCR) NOT DETECTED PD Medical Decision Making - ED course ED course: Patient with ongoing dental pain for a year but worse over the last week. No signs of oral abscess. Will start on antibiotics for dental infection. Also reports having bodyaches and subjective fever today. No cough or congestion or abdominal symptoms. Respiratory swab was obtained and is positive for parainfluenza. Patient counseled on continued supportive care, need for importance of dental follow-up as well as concerning symptoms to return for. Departure - Departure Disposition: 01 Home, Self Care Clinical Impression: Dental infection, Flu-like symptoms Condition: Stable Instructions: ED Abscess Dental, ED Viral Syndrome Prescriptions: Amoxicillin 500 mg PO TID 7 Days #21 cap Comments: I have sent an antibiotic prescription to [facility] in [place] For a dental infection. It is very important that you follow-up with a dentist. When it comes to dental problems like yours, the emergency department can only offer a short-term solution to your long-term problem. A couple of low cost options for dental care include: [facility] in [place], calls [phone] for an appointment Or [facility] in [place], call [phone] for an appointment. Your respiratory panel is pending. This will check for COVID, influenza, RSV and a number of other common cold viruses. We will notify you if it is positive for COVID. Otherwise you can check the patient portal for your results. You should quarantine from others until you know your COVID result. Please continue with acetaminophen or ibuprofen as needed for fevers and body aches, plenty of fluids/hydration and rest. Return to the ER with any worsening symptoms such as difficulty breathing or vomiting. Forms: PCP List Discharge Date/Time: 09/15/23 11:19
[2023-09-15 11:27] VITALS: BP 126/83; O2SAT 100
[2023-09-15 12:05] LABS: B. PARAPERTUSSIS- RESP PCR PAN NOT DETECTED; B. PERTUSSIS- RESP PCR PANEL NOT DETECTED; C. PNEUMONIAE- RESP PCR PANEL NOT DETECTED; CORONAVIRUS 229E-RESP PCR NOT DETECTED; CORONAVIRUS HKU1-RESP PCR NOT DETECTED; CORONAVIRUS NL63-RESP PCR NOT DETECTED; CORONAVIRUS OC43-RESP PCR NOT DETECTED; HUMAN METAPNEUMOVIRUS NOT DETECTED; INFLUENZA A- RESP PCR PANEL NOT DETECTED; INFLUENZA B - RESP PCR PANEL NOT DETECTED; M. PNEUMONIAE- RESP PCR PANEL NOT DETECTED; PARAINFLUENZA VIRUS 1 NOT DETECTED; PARAINFLUENZA VIRUS 2 NOT DETECTED; PARAINFLUENZA VIRUS 3 DETECTED; PARAINFLUENZA VIRUS 4 NOT DETECTED; RHINOVIRUS/ENTEROVIRUS NOT DETECTED; RSV- RESP PCR PANEL NOT DETECTED; SARS-CoV-2 -RESP PCR PANEL NOT DETECTED
== END 2023-09-15 11:19 | disposition home or self-care (01) ==
LOC: ED 09:59
DX: K04.7 Periapical abscess without sinus (principal); M79.10 Myalgia, unspecified site; F17.200 Nicotine dependence, unspecified, uncomplicated
CPT/HCPCS: 87633; 99283